=== PATIENT | female | born 1970 | race Caucasian/White ===

== ENCOUNTER 2018-11-07 09:01 | Day surgery (SDC) | payer BC ==
[~2018-11-07] VITALS: Ht 170.2 cm; Wt 80.0 kg
[~2018-11-07 09:01] MED LIST: ABAC300; Ibuprofen Ib200 MG; OXYACE5T PO; PROM25; Verotin-Gr Cap1 EACH PO; [UNRECOGNIZED DRUG - OTHER] PO
[2018-11-07] MEDS ORDERED: LOSA50 (09:31)
[2018-11-07] MEDS ORDERED: ZOLOFT20 MG/ML (09:31)
[2018-11-07] MEDS ORDERED: GABA300 (09:32)
[2018-11-07] MEDS ORDERED: LEVSOD50 (09:34)
== END 2018-11-07 11:10 | disposition home or self-care (01) ==
LOC: ORSCSDS 09:01
PROVIDERS: Internal Medicine Gastroenterology
PROC: 0DJD8ZZ Inspection of Lower Intestinal Tract, Via Natural or Artificial Opening Endoscopic (ICD-10-PCS; principal; 2018-11-07 10:15)
DX: Z12.11 Encounter for screening for malignant neoplasm of colon (principal); K57.30 Diverticulosis of large intestine without perforation or abscess without bleeding; K64.8 Other hemorrhoids; I10 Essential (primary) hypertension; F17.210 Nicotine dependence, cigarettes, uncomplicated; Z79.899 Other long term (current) drug therapy
CPT/HCPCS: J2704; J7120

== ENCOUNTER 2022-05-06 12:50 | Day surgery (SDC) | payer OTHER ==
[~2022-05-06] VITALS: Ht 170.2 cm; Wt 78.3 kg
[~2022-05-06 12:50] MED LIST changes: +GABA300; +LEVSOD50; +LOSA50; +ZOLOFT20 MG/ML
--- NOTE | 2022-05-06 14:11 | NUR ---
05/06/22 1411 ERIC GODINEZ 5MLS OF LIDOCAINE 1% MIXED WITH 5MLS OF ROPIVACAINE 0.5% AND POURED ONTO STERILE FIELD FOR USE DURING CASE.
--- NOTE | 2022-05-06 15:21 | NUR ---
05/06/22 [email or web address] Aline Cornejo SPO2 MAINTAINED STEADY IN STEPDOWN (94-100%) BUT LOWER VALUES WERE RECORDED ON STRIP D/T BLOOD PRESSURE AND PULSE OX BEING ON SAME ARM D/T SURGERY ON R HAND.
== END 2022-05-06 15:48 | disposition home or self-care (01) ==
LOC: ORSCSDS 12:50
PROVIDERS: Orthopaedic Surgery
PROC: 0LB70ZZ Excision of Right Hand Tendon, Open Approach (ICD-10-PCS; principal; 2022-05-06 14:15)
DX: M67.441 Ganglion, right hand (principal); I10 Essential (primary) hypertension; E03.9 Hypothyroidism, unspecified; Z79.899 Other long term (current) drug therapy
CPT/HCPCS: 88304; J0690; J1100; J1885; J2250; J2405; J2704; J2795; J3010; J7120

== ENCOUNTER → 2024-10-21 | Outpatient (CLI) | payer OTHER ==
[2024-10-21 10:33] LABS: BASOPHILS ABSOLUTE AUTO 0.07 K/mm3 (0.00-0.23); BASOPHILS PERCENT AUTO 1 % (0-2); EOSINOPHILS ABSOLUTE AUTO 0.33 K/mm3 (0.00-0.68); EOSINOPHILS PERCENT AUTO 5 % (0-6); Hematocrit 40.6 % (33.0-51.0); Hemoglobin 14.2 g/dL (11.5-16.0); IMMATURE GRAN ABSOLUTE AUTO 0.02 K/mm3 (0.00-0.10); IMMATURE GRAN PERCENT AUTO 0 % (0-1); LYMPHOCYTES ABSOLUTE AUTO 1.34 K/mm3 (0.84-5.20); LYMPHOCYTES PERCENT AUTO 22 % (21-46); MONOCYTES ABSOLUTE AUTO 0.66 K/mm3 (0.16-1.47); MONOCYTES PERCENT AUTO 11 % (4-13); Mean Corpuscular HGB Conc 35.0 g/dL (31.5-36.5); Mean Corpuscular Volume 94 fL (80-100); NEUTROPHILS ABSOLUTE AUTO 3.70 K/mm3 (1.96-9.15); NEUTROPHILS PERCENT AUTO 61 % (41-73); NRBC ABSOLUTE 0.00 K/mm3 (0.00-0.02); NRBC Auto 0.0 /100 WBC (0.0-0.2); Platelet Count 214 K/mm3 (150-400); RDW Coefficient Variation 14.6 % (11.7-14.2); RDW Standard Deviation 50.2 fL (35.1-46.3)
[2024-10-21 10:44] LABS: Alanine Aminotransfer (ALT/SGP 387.0 U/L (12-78); Albumin, Blood 3.7 g/dL (3.4-5.0); Albumin/Globulin Ratio 1.0 (0.8-1.8); Anion Gap 16.0 mmol/L (3-11); Aspartate Aminotrans (AST/SGOT 80.0 U/L (12-37); Bilirubin, Total 0.7 mg/dL (0.1-1.0); Blood Urea Nitrogen 12.0 mg/dL (8-24); CO2, Blood 26.0 mmol/L (21-32); Calcium, Blood 9.3 mg/dL (8.5-10.1); Chloride, Blood 104.0 mmol/L (98-108); Creatinine, Blood 0.76 mg/dL (0.40-1.00); Globulin, Blood 3.7 g/dL (2.2-4.0); Glucose, Blood 101.0 mg/dL (70-99); Potassium, Blood 3.6 mmol/L (3.5-5.5); Sodium, Blood 142.0 mmol/L (136-145); Total Protein, Blood 7.4 g/dL (6.4-8.2)
[2024-10-22 18:38] LABS: HEPATITIS A ANTIBODY, IGM Negative (Negative); HEPATITIS C AB CIA INTERP Negative (Negative); HEPATITIS C ANTIBODY CIA INDEX 0.02 IV
== END | disposition home or self-care (01) ==
LOC: LAB SHORT 10:28 → LAB 10:28
PROVIDERS: Physician Assistant
DX: N39.0 Urinary tract infection, site not specified (principal); R79.89 Other specified abnormal findings of blood chemistry
CPT/HCPCS: 80053; 80074; 83690; 85025; 87077; 87086; 87186